=== PATIENT | female | born 1985 | race African-American/Black ===

== ENCOUNTER 2017-02-20 23:37 | Emergency (ER) | payer OTHER ==
[~2017-02-20] VITALS: Ht 160 cm; Wt 48.0 kg
[~2017-02-20 23:37] MED LIST: ALBU18HF2; FERR-43 PO; PREN-88 PO
[2017-02-21] MEDS ORDERED: IPRATROPIUM BROMIDE (0.02%) 0.5MG/2.5ML NEB HHN STA (00:05)
[2017-02-21] MEDS ORDERED: ALBUTEROL (0.083%) 2.5MG/3ML NEB HHN STA (00:05)
[2017-02-21] MEDS ORDERED: METHYLPREDNISOLONE SOD SUCC 125 MG/2 ML VIAL IV STA (00:05)
[2017-02-21 00:48] LABS: EOSINOPHILS % 10.9 % (0.0-5.0); HEMATOCRIT. 39.3 % (36.0-48.0); LYMPHOCYTES % 38.9 % (20.0-50.0); MEAN CORPUSCULAR HEMOGLOBIN 28.5 pg (28.0-32.0); MEAN CORPUSCULAR HGB CONC 33.2 g/dL (31.0-37.0); MEAN CORPUSCULAR VOLUME 85.9 fL (81.0-99.0); MEAN PLATELET VOLUME 9.6 fl (7.4-10.4); MONOCYTES % 8.5 % (2.0-8.0); NEUTROPHILS % 40.7 % (40.0-76.0); PLATELET 268 x1000/uL (130-400); RED BLOOD CELL COUNT 4.57 mill/uL (4.2-5.4); WHITE BLOOD COUNT 7.5 x1000/uL (4.5-11.0)
[2017-02-21 00:53] LABS: CHLORIDE 105 mEq/L (98-107); INDEX HEMOLYSI 1 (1-3); INDEX ICTERIC 1 (1-4); INDEX LIPEMIC 1 (1-3)
[2017-02-21 00:55] LABS: PARTIAL THROMBOPLASTIN TIME 28.6 sec (24.0-34.0); PROTHROMBIN TIME 10.8 sec
[2017-02-21 00:56] LABS: HCG SCREEN NEGATIVE
[2017-02-21 01:00] LABS: ANION GAP 9; CALCIUM 9.2 mg/dL (8.5-10.1); CARBON DIOXIDE 29 mEq/L (21-32); UREA NITROGEN BLOOD 16 mg/dL (7-21); eGFR > 60 mL/min (>60)
[2017-02-21 03:43] VITALS: BP 107/80
== END 2017-02-21 03:49 | disposition home or self-care (01) ==
LOC: ER 23:38
DX: J45.41 Moderate persistent asthma with (acute) exacerbation (principal); Z91.010 Allergy to peanuts; Z91.013 Allergy to seafood; Z79.51 Long term (current) use of inhaled steroids; R03.0 Elevated blood-pressure reading, without diagnosis of hypertension; Z91.09 Other allergy status, other than to drugs and biological substances
CPT/HCPCS: 36415; 71010; 80048; 84703; 85025; 85610; 85730; 93005; 94644; 96374; 99285; J2930; J7611; Z7610

== ENCOUNTER 2017-03-23 07:14 | Emergency (ER) | payer OTHER ==
[~2017-03-23] VITALS: Ht 160 cm; Wt 50.0 kg
[2017-03-23] MEDS ORDERED: ONDANSETRON HCL 4MG/2ML VIAL IV STA ×2 (11:30→14:21)
[2017-03-23] MEDS ORDERED: MORPHINE SULFATE 4 MG/ML CPJ (NOT FOR IM USE) IV STA ×2 (11:30→14:21)
[2017-03-23 12:13] LABS: BASOPHILS % 1.1 % (0.0-2.0); EOSINOPHILS % 12.4 % (0.0-5.0); HEMATOCRIT. 36.7 % (36.0-48.0); HEMOGLOBIN. 12.2 g/dL (12.0-16.0); LYMPHOCYTES % 38.4 % (20.0-50.0); MEAN CORPUSCULAR HEMOGLOBIN 28.6 pg (28.0-32.0); MEAN CORPUSCULAR VOLUME 86.1 fL (81.0-99.0); MEAN PLATELET VOLUME 9.6 fl (7.4-10.4); MONOCYTES % 8.2 % (2.0-8.0); NEUTROPHILS % 39.9 % (40.0-76.0); PLATELET 258 x1000/uL (130-400); RED BLOOD CELL COUNT 4.27 mill/uL (4.2-5.4)
[2017-03-23 12:15] LABS: CHLORIDE 106 mEq/L (98-107)
[2017-03-23 12:16] LABS: PROTHROMBIN TIME 10.8 sec
[2017-03-23 12:20] LABS: CARBON DIOXIDE 27 mEq/L (21-32)
[2017-03-23 12:35] LABS: CLARITY URINE CLOUDY (CLEAR); COLOR URINE YELLOW (YELLOW); GLUCOSE URINE NEGATIVE (NEGATIVE); KETONES URINE NEGATIVE (NEGATIVE); LEUKOCYTE ESTERASE URINE 2+ (NEGATIVE); NITRITE URINE NEGATIVE (NEGATIVE); OCCULT BLOOD URINE NEGATIVE (NEGATIVE); PROTEIN URINE NEGATIVE (NEGATIVE); SPECIFIC GRAVITY URINE 1.017 (1.005-1.030)
[2017-03-23] MEDS ORDERED: SODIUM CHLORIDE 0.9% 1,000 ML IV ONE (14:21)
[2017-03-23] MEDS ORDERED: SODIUM CHLORIDE 0.9% 10ML VIAL ONE (14:30)
[2017-03-23] MEDS ORDERED: IOHEXOL-300 100 ML BOTTLE ONE (14:30)
[2017-03-23 14:31] VITALS: BP 110/70
== END 2017-03-23 16:36 | disposition home or self-care (01) ==
LOC: ER 11:03
DX: R10.32 Left lower quadrant pain (principal); M54.9 Dorsalgia, unspecified; J45.909 Unspecified asthma, uncomplicated; Z88.6 Allergy status to analgesic agent; Z88.8 Allergy status to other drugs, medicaments and biological substances
CPT/HCPCS: 36415; 74177; 80053; 81001; 81025; 83690; 85025; 85610; 96361; 96374; 96375; 96376; 99285; A4216; J2270; J2405; Q9967; J7030

== ENCOUNTER 2017-04-20 00:40 | Emergency (ER) | payer OTHER ==
[~2017-04-20] VITALS: Ht 160 cm; Wt 50.0 kg
[2017-04-20] MEDS ORDERED: ONDANSETRON 4MG ODT PO STA (02:49)
[2017-04-20] MEDS ORDERED: ACETAMINOPHEN 325MG TABLET PO STA (02:49)
[2017-04-20 03:14] LABS: BASOPHILS % 0.5 % (0.0-2.0); EOSINOPHILS % 9.4 % (0.0-5.0); HEMATOCRIT. 34.2 % (36.0-48.0); HEMOGLOBIN. 11.3 g/dL (12.0-16.0); LYMPHOCYTES % 31.8 % (20.0-50.0); MEAN CORPUSCULAR HEMOGLOBIN 28.6 pg (28.0-32.0); MEAN CORPUSCULAR VOLUME 86.6 fL (81.0-99.0); MONOCYTES % 9.2 % (2.0-8.0); NEUTROPHILS % 49.1 % (40.0-76.0); PLATELET 221 x1000/uL (130-400); RED BLOOD CELL COUNT 3.95 mill/uL (4.2-5.4); RED CELL DISTRIBUTION WIDTH 13.2 % (11.6-14.6)
[2017-04-20 03:17] LABS: PROTHROMBIN TIME 10.9 sec
[2017-04-20 03:20] LABS: CLARITY URINE CLEAR (CLEAR); COLOR URINE YELLOW (YELLOW); GLUCOSE URINE NEGATIVE (NEGATIVE); KETONES URINE NEGATIVE (NEGATIVE); LEUKOCYTE ESTERASE URINE 1+ (NEGATIVE); NITRITE URINE NEGATIVE (NEGATIVE); OCCULT BLOOD URINE NEGATIVE (NEGATIVE); PH URINE 5.5 (4.5-8.0); PROTEIN URINE NEGATIVE (NEGATIVE); SPECIFIC GRAVITY URINE 1.026 (1.005-1.030); UROBILINOGEN URINE 0.2 E.U./dL (0.2-1.0)
[2017-04-20 03:20] LABS: CARBON DIOXIDE 28 mEq/L (21-32); CHLORIDE 107 mEq/L (98-107)
[2017-04-20 03:38] LABS: *AMPHETAMINES SCREEN URINE NEGATIVE (NEGATIVE); *BARBITURATES SCREEN URINE NEGATIVE (NEGATIVE); *BENZODIAZEPINES SCREEN URINE NEGATIVE (NEGATIVE); *COCAINE SCREEN URINE NEGATIVE (NEGATIVE); CANNABINOID URINE SCREEN NEGATIVE (NEGATIVE); METHADONE URINE SCREEN NEGATIVE (NEGATIVE); OPIATES URINE SCREEN NEGATIVE (NEGATIVE); PHENCYCLIDINE URINE SCREEN NEGATIVE (NEGATIVE)
[2017-04-20] MEDS ORDERED: TRAMADOL 50MG TABLET PO ONE (05:00)
[2017-04-20 05:37] VITALS: BP 108/68
[2017-04-20] MEDS ORDERED: CEFTRIAXONE SODIUM 1 G/VIAL IM ONE (05:45)
[2017-04-20] MEDS ORDERED: LIDOCAINE HCL 1% 20ML VIAL (Pyxis) INJ MC ONE (05:45)
== END 2017-04-20 06:29 | disposition home or self-care (01) ==
LOC: ER 00:40
DX: N39.0 Urinary tract infection, site not specified (principal); R10.2 Pelvic and perineal pain; Z88.6 Allergy status to analgesic agent
CPT/HCPCS: 36415; 76830; 76856; 80053; 80305; 81001; 81025; 83690; 85025; 85610; 96372; 99285; J0696; J3490; Q0162; Z7610

== ENCOUNTER 2017-04-24 18:32 | Emergency (ER) | payer OTHER ==
[~2017-04-24] VITALS: Ht 160 cm; Wt 50.0 kg
[2017-04-25 01:15] VITALS: BP 102/68
[2017-04-25 01:42] LABS: CLARITY URINE CLOUDY (CLEAR); COLOR URINE DARK YELLOW (YELLOW); KETONES URINE NEGATIVE (NEGATIVE); LEUKOCYTE ESTERASE URINE TRACE (NEGATIVE); NITRITE URINE NEGATIVE (NEGATIVE); OCCULT BLOOD URINE NEGATIVE (NEGATIVE); PROTEIN URINE NEGATIVE (NEGATIVE); SPECIFIC GRAVITY URINE 1.024 (1.005-1.030); UROBILINOGEN URINE 0.2 E.U./dL (0.2-1.0)
[2017-04-25] MEDS ORDERED: PHENAZOPYRIDINE HCL 200MG TABLET PO ONE (02:00)
== END 2017-04-25 02:41 | disposition home or self-care (01) ==
LOC: ER 18:32
DX: N39.0 Urinary tract infection, site not specified (principal); J45.909 Unspecified asthma, uncomplicated; Z88.6 Allergy status to analgesic agent; Z91.010 Allergy to peanuts; Z91.013 Allergy to seafood; Z91.048 Other nonmedicinal substance allergy status; Z98.890 Other specified postprocedural states
CPT/HCPCS: 81001; 81025; 99283

== ENCOUNTER 2017-06-12 11:21 | Emergency (ER) | payer OTHER ==
[~2017-06-12] VITALS: Ht 157.5 cm; Wt 50.0 kg
[2017-06-12] MEDS ORDERED: IOHEXOL-300 100 ML BOTTLE ONE (11:22)
[2017-06-12] MEDS ORDERED: SODIUM CHLORIDE 0.9% 10ML VIAL ONE (11:22)
[2017-06-12] MEDS ORDERED: KETOROLAC 30MG/ML VIAL IV STA (15:00)
[2017-06-12] MEDS ORDERED: SODIUM CHLORIDE 0.9% 1,000 ML IV ONE ×2 (15:00→17:19)
[2017-06-12] MEDS ORDERED: DEXAMETHASONE 10 MG/ML VIAL IV ONE (15:00)
[2017-06-12 17:25] LABS: BASOPHILS % 0.5 % (0.0-2.0); EOSINOPHILS % 1.2 % (0.0-5.0); HEMATOCRIT. 32.9 % (36.0-48.0); HEMOGLOBIN. 10.9 g/dL (12.0-16.0); LYMPHOCYTES % 9.1 % (20.0-50.0); MEAN CORPUSCULAR HEMOGLOBIN 28.9 pg (28.0-32.0); MEAN CORPUSCULAR VOLUME 87.3 fL (81.0-99.0); MEAN PLATELET VOLUME 8.9 fl (7.4-10.4); MONOCYTES % 2.1 % (2.0-8.0); NEUTROPHILS % 87.1 % (40.0-76.0); PLATELET 235 x1000/uL (130-400); RED BLOOD CELL COUNT 3.77 mill/uL (4.2-5.4); RED CELL DISTRIBUTION WIDTH 13.1 % (11.6-14.6)
[2017-06-12 17:33] LABS: CARBON DIOXIDE 24 mEq/L (21-32); CHLORIDE 110 mEq/L (98-107)
[2017-06-12] MEDS ORDERED: PENICILLIN G BENZATHINE 1,200,000 UNITS/2ML SYR IM ONE (19:30)
[2017-06-12] MEDS ORDERED: HYDROCODONE/ACETAMINOPHEN 5/325MG TABLET PO ONE (19:30)
[2017-06-12 21:00] VITALS: BP 120/71
== END 2017-06-12 21:50 | disposition home or self-care (01) ==
LOC: ER 15:24
DX: J02.9 Acute pharyngitis, unspecified (principal); J45.909 Unspecified asthma, uncomplicated; Z88.6 Allergy status to analgesic agent
CPT/HCPCS: 36415; 70491; 80053; 81025; 85025; 96361; 96372; 96374; 96375; 99285; A4216; J0561; J1100; J1885; J7030; Q9967; Z7610

== ENCOUNTER 2017-07-09 11:27 | Emergency (ER) | payer OTHER ==
[~2017-07-09] VITALS: Ht 157.5 cm; Wt 53.0 kg
[2017-07-09] MEDS ORDERED: ONDANSETRON HCL 4MG/2ML VIAL IV STA (13:05)
[2017-07-09] MEDS ORDERED: FAMOTIDINE 20MG/2ML VIAL IV STA (13:05)
[2017-07-09] MEDS ORDERED: MAGNESIUM/ALUMINUM HYDROXIDE/SIMETHICONE 30ML UDC PO STA (13:05)
[2017-07-09] MEDS ORDERED: MORPHINE SULFATE 4 MG/ML CPJ (NOT FOR IM USE) IV STA (13:05)
[2017-07-09] MEDS ORDERED: SODIUM CHLORIDE 0.9% 1,000 ML IV ONE (13:05)
[2017-07-09 14:34] LABS: GLUCOSE URINE NEGATIVE (NEGATIVE); KETONES URINE NEGATIVE (NEGATIVE); LEUKOCYTE ESTERASE URINE 1+ (NEGATIVE); NITRITE URINE NEGATIVE (NEGATIVE); OCCULT BLOOD URINE 3+ (NEGATIVE); PH URINE 5.5 (4.5-8.0); PROTEIN URINE NEGATIVE (NEGATIVE); SPECIFIC GRAVITY URINE 1.029 (1.005-1.030); UROBILINOGEN URINE 0.2 E.U./dL (0.2-1.0)
[2017-07-09 14:35] LABS: CLARITY URINE CLEAR (CLEAR); COLOR URINE YELLOW (YELLOW)
[2017-07-09 14:56] LABS: EOSINOPHILS % 14.2 % (0.0-5.0); HEMATOCRIT. 33.6 % (36.0-48.0); LYMPHOCYTES % 34.2 % (20.0-50.0); MEAN CORPUSCULAR HEMOGLOBIN 28.8 pg (28.0-32.0); MEAN CORPUSCULAR VOLUME 87.8 fL (81.0-99.0); MEAN PLATELET VOLUME 9.5 fl (7.4-10.4); MONOCYTES % 7.9 % (2.0-8.0); NEUTROPHILS % 42.7 % (40.0-76.0); PLATELET 239 x1000/uL (130-400); RED BLOOD CELL COUNT 3.83 mill/uL (4.2-5.4)
[2017-07-09 14:58] LABS: *AMPHETAMINES SCREEN URINE NEGATIVE (NEGATIVE); *BARBITURATES SCREEN URINE NEGATIVE (NEGATIVE); *BENZODIAZEPINES SCREEN URINE NEGATIVE (NEGATIVE); *COCAINE SCREEN URINE NEGATIVE (NEGATIVE); CANNABINOID URINE SCREEN NEGATIVE (NEGATIVE); METHADONE URINE SCREEN NEGATIVE (NEGATIVE); PHENCYCLIDINE URINE SCREEN NEGATIVE (NEGATIVE)
[2017-07-09 15:01] LABS: HCG SCREEN NEGATIVE
[2017-07-09 15:03] LABS: OPIATES URINE SCREEN PRESUMTIVE POSITIVE (NEGATIVE)
[2017-07-09 15:05] LABS: D-DIMER < 0.19 mg/L FEU (<0.50); INR 1.1
[2017-07-09 15:08] LABS: CARBON DIOXIDE 26 mEq/L (21-32); CHLORIDE 112 mEq/L (98-107); ETHANOL BLOOD < 10 mg/dL
[2017-07-09 15:10] LABS: TROPONIN I < 0.02 ng/mL (0.00-0.04)
[2017-07-09] MEDS ORDERED: MORPHINE SULFATE 4 MG/ML CPJ (NOT FOR IM USE) IV ONE (15:30)
[2017-07-09] MEDS ORDERED: LORAZEPAM 2MG/ML CPJ IV ONE (15:30)
[2017-07-09] MEDS ORDERED: ONDANSETRON HCL 4MG/2ML VIAL IV ONE (15:30)
[2017-07-09 17:32] VITALS: BP 142/86
== END 2017-07-09 18:23 | disposition home or self-care (01) ==
LOC: ER 12:45
DX: K29.70 Gastritis, unspecified, without bleeding (principal); N39.0 Urinary tract infection, site not specified; R07.9 Chest pain, unspecified; J45.909 Unspecified asthma, uncomplicated; Z88.6 Allergy status to analgesic agent
CPT/HCPCS: 36415; 71010; 80053; 80305; 81001; 83690; 83880; 84484; 84703; 85025; 85379; 85610; 93005; 96361; 96374; 96375; 96376; 99285; G0482; J2060; J2270; J2405; J3490; J7030; Z7610

== ENCOUNTER 2017-07-11 10:01 | Emergency (ER) | payer OTHER ==
[~2017-07-11] VITALS: Ht 157.5 cm; Wt 53.0 kg
[2017-07-11] MEDS ORDERED: NITR100C PO (10:46)
[2017-07-11] MEDS ORDERED: FAMO20TA8 PO (10:46)
[2017-07-11] MEDS ORDERED: HYDR-3281 PO (10:46)
[2017-07-11] MEDS ORDERED: CARI350T27 PO (10:46)
[2017-07-11] MEDS ORDERED: VISCOUS LIDOCAINE 2% 15 ML UDC PO STA (15:21)
[2017-07-11] MEDS ORDERED: SODIUM CHLORIDE 0.9% 1,000 ML IV ONE (15:21)
[2017-07-11] MEDS ORDERED: MAGNESIUM/ALUMINUM HYDROXIDE/SIMETHICONE 30ML UDC PO STA (15:21)
[2017-07-11] MEDS ORDERED: MORPHINE SULFATE 4 MG/ML CPJ (NOT FOR IM USE) IV ONE (15:30)
[2017-07-11 16:18] LABS: HEMATOCRIT. 39.2 % (36.0-48.0); LYMPHOCYTES % 24.4 % (20.0-50.0); MEAN CORPUSCULAR VOLUME 87.3 fL (81.0-99.0); MEAN PLATELET VOLUME 9.5 fl (7.4-10.4); MONOCYTES % 6.5 % (2.0-8.0); NEUTROPHILS % 67.1 % (40.0-76.0); PLATELET 289 x1000/uL (130-400); RED BLOOD CELL COUNT 4.49 mill/uL (4.2-5.4)
[2017-07-11 16:26] LABS: CARBON DIOXIDE 26 mEq/L (21-32); CHLORIDE 105 mEq/L (98-107)
[2017-07-11] MEDS ORDERED: LORAZEPAM 0.5MG TABLET PO ONE (17:30)
[2017-07-11 19:15] VITALS: BP 114/68
[2017-07-11] MEDS ORDERED: TRAMADOL 50MG TABLET PO ONE (19:15)
== END 2017-07-11 19:25 | disposition home or self-care (01) ==
LOC: ER 14:15
DX: R10.13 Epigastric pain (principal); R07.89 Other chest pain; J45.909 Unspecified asthma, uncomplicated; Z88.6 Allergy status to analgesic agent; Z87.11 Personal history of peptic ulcer disease
CPT/HCPCS: 36415; 71010; 80053; 81025; 84484; 85025; 93005; 96374; 99285; J2270; J7030; Z7610

== ENCOUNTER 2017-08-25 08:36 | Emergency (ER) | payer OTHER ==
[~2017-08-25] VITALS: Ht 160 cm; Wt 52.0 kg
[~2017-08-25 08:36] MED LIST changes: +CARI350T27 PO; +FAMO20TA8 PO; +HYDR-3281 PO; +NITR100C PO
[2017-08-25] MEDS ORDERED: NO HOME MEDICATIONS (08:48)
[2017-08-25 09:41] LABS: CLARITY URINE CLOUDY (CLEAR); COLOR URINE YELLOW (YELLOW); GLUCOSE URINE NEGATIVE (NEGATIVE); KETONES URINE NEGATIVE (NEGATIVE); LEUKOCYTE ESTERASE URINE 2+ (NEGATIVE); NITRITE URINE NEGATIVE (NEGATIVE); OCCULT BLOOD URINE NEGATIVE (NEGATIVE); PROTEIN URINE NEGATIVE (NEGATIVE); SPECIFIC GRAVITY URINE 1.024 (1.005-1.030)
[2017-08-25] MEDS ORDERED: MORPHINE SULFATE 4 MG/ML CPJ (NOT FOR IM USE) IV STA (09:54)
[2017-08-25] MEDS ORDERED: ONDANSETRON HCL 4MG/2ML VIAL IV STA (09:54)
[2017-08-25] MEDS ORDERED: SODIUM CHLORIDE 0.9% 1,000 ML IV ONE (09:54)
[2017-08-25 10:15] LABS: BASOPHILS % 0.7 % (0.0-2.0); EOSINOPHILS % 6.4 % (0.0-5.0); HEMATOCRIT. 36.2 % (36.0-48.0); HEMOGLOBIN. 12.3 g/dL (12.0-16.0); LYMPHOCYTES % 30.7 % (20.0-50.0); MEAN CORPUSCULAR HEMOGLOBIN 29.2 pg (28.0-32.0); MEAN PLATELET VOLUME 8.9 fl (7.4-10.4); MONOCYTES % 12.7 % (2.0-8.0); NEUTROPHILS % 49.5 % (40.0-76.0); PLATELET 267 x1000/uL (130-400); RED BLOOD CELL COUNT 4.21 mill/uL (4.2-5.4); RED CELL DISTRIBUTION WIDTH 12.9 % (11.6-14.6)
[2017-08-25 10:22] LABS: CHLORIDE 105 mEq/L (98-107)
[2017-08-25 10:23] LABS: INR 1.1; PROTHROMBIN TIME 11.3 sec (9.4-11.6)
[2017-08-25 10:24] LABS: HCG SCREEN NEGATIVE
[2017-08-25 10:32] LABS: CARBON DIOXIDE 27 mEq/L (21-32)
[2017-08-25] MEDS ORDERED: CEFTRIAXONE 1 G PREMIX 50 ML IV ONE (11:30)
[2017-08-25] MEDS ORDERED: KETOROLAC 30MG/ML VIAL IM ONE (12:30)
[2017-08-25] MEDS ORDERED: MORPHINE SULFATE 4 MG/ML CPJ (NOT FOR IM USE) IV ONE (13:45)
[2017-08-25 15:42] VITALS: BP 117/71
== END 2017-08-25 15:42 | disposition home or self-care (01) ==
LOC: ER 09:07
DX: N39.0 Urinary tract infection, site not specified (principal); J32.9 Chronic sinusitis, unspecified; J45.909 Unspecified asthma, uncomplicated; Z88.8 Allergy status to other drugs, medicaments and biological substances
CPT/HCPCS: 36415; 74176; 76857; 80053; 81001; 83690; 84703; 85025; 85610; 96361; 96365; 96375; 96376; 99285; J0696; J2270; J2405; J7030; Z7610; J1885

== ENCOUNTER 2017-10-12 10:34 | Emergency (ER) | payer MEDICAID, OTHER ==
[~2017-10-12] VITALS: Ht 160 cm; Wt 53.0 kg
[~2017-10-12 10:34] MED LIST changes: +NO HOME MEDICATIONS
[2017-10-12] MEDS ORDERED: HALOPERIDOL LACTATE 5MG/ML VIAL IM ONE (15:30)
[2017-10-12] MEDS ORDERED: LORAZEPAM 2MG/ML CPJ IM ONE (15:30)
[2017-10-12] MEDS: MORPHINE SULFATE 4 MG/ML CPJ (NOT FOR IM USE) IV STA (16:42)
[2017-10-12] MEDS: SODIUM CHLORIDE 0.9% 1,000 ML IV ONE (16:42)
[2017-10-12] MEDS: ONDANSETRON HCL 4MG/2ML VIAL IV STA (16:43)
[2017-10-12] MEDS: FAMOTIDINE 20MG/2ML VIAL IV STA (16:43)
[2017-10-12 16:47] LABS: BASOPHILS % 0.3 % (0.0-2.0); EOSINOPHILS % 5.2 % (0.0-5.0); HEMATOCRIT. 38.7 % (36.0-48.0); HEMOGLOBIN. 12.7 g/dL (12.0-16.0); LYMPHOCYTES % 10.5 % (20.0-50.0); MEAN CORPUSCULAR HEMOGLOBIN 28.3 pg (28.0-32.0); MEAN CORPUSCULAR VOLUME 86.4 fL (81.0-99.0); MEAN PLATELET VOLUME 9.4 fl (7.4-10.4); MONOCYTES % 5.4 % (2.0-8.0); NEUTROPHILS % 78.6 % (40.0-76.0); PLATELET 230 x1000/uL (130-400); RED BLOOD CELL COUNT 4.47 mill/uL (4.2-5.4); RED CELL DISTRIBUTION WIDTH 13.2 % (11.6-14.6)
[2017-10-12 16:51] LABS: CHLORIDE 106 mEq/L (98-107)
[2017-10-12 16:53] LABS: INR 1.1
[2017-10-12 16:54] LABS: CLARITY URINE CLOUDY (CLEAR); COLOR URINE YELLOW (YELLOW); KETONES URINE 1+ (NEGATIVE); LEUKOCYTE ESTERASE URINE TRACE (NEGATIVE); NITRITE URINE NEGATIVE (NEGATIVE); OCCULT BLOOD URINE NEGATIVE (NEGATIVE); PROTEIN URINE NEGATIVE (NEGATIVE); SPECIFIC GRAVITY URINE 1.035 (1.005-1.030)
[2017-10-12 16:59] LABS: CARBON DIOXIDE 25 mEq/L (21-32)
[2017-10-12 19:40] VITALS: BP 104/55
[2017-10-12] MEDS ORDERED: HYDROCODONE/APAP 7.5/325MG 1 TAB TABLET PO ONE (19:45)
== END 2017-10-12 20:20 | disposition home or self-care (01) ==
LOC: ER 10:34
DX: K52.9 Noninfective gastroenteritis and colitis, unspecified (principal); J45.909 Unspecified asthma, uncomplicated; Z88.6 Allergy status to analgesic agent
CPT/HCPCS: 36415; 80053; 81001; 81025; 83690; 85025; 85610; 96374; 96375; 99284; J2270; J2405; J3490; J7030

== ENCOUNTER 2017-11-10 16:36 | Emergency (ER) | payer MEDICAID ==
[~2017-11-10] VITALS: Ht 160 cm; Wt 62.0 kg
[2017-11-10] MEDS ORDERED: IPRATROPIUM/ALBUTEROL 0.5-3(2.5)MG/3ML NEB HHN ONE (17:30)
[2017-11-10] MEDS ORDERED: PREDNISONE 20MG TABLET PO ONE (17:30)
[2017-11-10] MEDS ORDERED: ALBUTEROL (0.083%) 2.5MG/3ML NEB HHN STA (18:12)
[2017-11-10 18:46] VITALS: BP 113/69
[2017-11-10] MEDS ORDERED: ACETAMINOPHEN 325MG TABLET PO ONE (19:15)
== END 2017-11-10 19:23 | disposition home or self-care (01) ==
LOC: ER 16:57
DX: J45.901 Unspecified asthma with (acute) exacerbation (principal); M79.1 Myalgia; J02.9 Acute pharyngitis, unspecified; Z88.6 Allergy status to analgesic agent
CPT/HCPCS: 71045; 87804; 93005; 94640; 99285; J7512; J7611; J7620

== ENCOUNTER 2017-12-11 19:45 | Emergency (ER) | payer MEDICAID ==
[~2017-12-11] VITALS: Ht 160 cm; Wt 55.0 kg
[2017-12-11] MEDS ORDERED: VISCOUS LIDOCAINE 2% 15 ML UDC MM STA (22:39)
[2017-12-11] MEDS ORDERED: FAMOTIDINE 20MG TABLET PO ONE (22:45)
[2017-12-12 00:15] VITALS: BP 129/47
== END 2017-12-12 02:09 | disposition home or self-care (01) ==
LOC: ER 20:51
DX: R07.89 Other chest pain (principal); R07.0 Pain in throat; J45.909 Unspecified asthma, uncomplicated; Z98.890 Other specified postprocedural states; Z79.82 Long term (current) use of aspirin
CPT/HCPCS: 71045; 81025; 93005; 99284; Z7610

== ENCOUNTER 2018-02-04 18:44 | Emergency (ER) | payer MEDICAID ==
[~2018-02-04] VITALS: Ht 160 cm; Wt 53.0 kg
[2018-02-04 22:15] VITALS: BP 119/74
== END 2018-02-04 22:50 | disposition home or self-care (01) ==
LOC: ER 19:25
DX: M25.511 Pain in right shoulder (principal); J45.909 Unspecified asthma, uncomplicated
CPT/HCPCS: 81025; 99283; A4565

== ENCOUNTER 2019-01-30 13:31 | Emergency (ER) | payer MEDICAID ==
[~2019-01-30] VITALS: Ht 160 cm; Wt 58.0 kg
[2019-01-30] MEDS ORDERED: ONDANSETRON HCL 4MG/2ML INJ IV STA (15:02)
[2019-01-30] MEDS ORDERED: MORPHINE SULFATE 4 MG/ML CPJ (NOT FOR IM USE) IV STA (15:02)
[2019-01-30] MEDS ORDERED: SODIUM CHLORIDE 0.9% 1,000 ML IV ONE (15:02)
[2019-01-30] MEDS ORDERED: LORAZEPAM 2MG/ML CPJ IV ONE ×2 (15:15→17:00)
[2019-01-30 15:49] LABS: CLARITY URINE CLOUDY (CLEAR); COLOR URINE YELLOW (YELLOW); KETONES URINE NEGATIVE (NEGATIVE); LEUKOCYTE ESTERASE URINE NEGATIVE (NEGATIVE); NITRITE URINE NEGATIVE (NEGATIVE); OCCULT BLOOD URINE NEGATIVE (NEGATIVE); PH URINE >=9.0 (4.5-8.0); PROTEIN URINE NEGATIVE (NEGATIVE); SPECIFIC GRAVITY URINE 1.023 (1.005-1.030)
[2019-01-30 16:05] LABS: BASOPHILS % 0.8 % (0.0-2.0); EOSINOPHILS % 8.3 % (0.0-5.0); HEMOGLOBIN. 12.5 g/dL (12.0-16.0); LYMPHOCYTES % 33.3 % (20.0-50.0); MEAN CORPUSCULAR HEMOGLOBIN 29.4 pg (28.0-32.0); MEAN CORPUSCULAR VOLUME 87.1 fL (81.0-99.0); MEAN PLATELET VOLUME 9.8 fl (7.4-10.4); MONOCYTES % 8.1 % (2.0-8.0); NEUTROPHILS % 49.5 % (40.0-76.0); PLATELET 293 x1000/uL (130-400); RED BLOOD CELL COUNT 4.24 mill/uL (4.2-5.4); RED CELL DISTRIBUTION WIDTH 12.7 % (11.6-14.6)
[2019-01-30 16:10] LABS: CHLORIDE 108 mEq/L (98-107)
[2019-01-30 16:14] LABS: PARTIAL THROMBOPLASTIN TIME 29.9 sec (23.4-31.0); PROTHROMBIN TIME 10.4 sec (9.6-11.0)
[2019-01-30 16:24] LABS: HCG SCREEN NEGATIVE
[2019-01-30] MEDS ORDERED: ONDANSETRON HCL 4MG/2ML INJ IV ONE (17:00)
[2019-01-30] MEDS ORDERED: MORPHINE SULFATE 4 MG/ML CPJ (NOT FOR IM USE) IV ONE (17:00)
[2019-01-30 20:45] VITALS: BP 124/72
== END 2019-01-30 21:15 | disposition home or self-care (01) ==
LOC: ER 13:31
DX: N39.0 Urinary tract infection, site not specified (principal); M54.16 Radiculopathy, lumbar region; J45.909 Unspecified asthma, uncomplicated; Z79.899 Other long term (current) drug therapy; Z88.6 Allergy status to analgesic agent; Z91.010 Allergy to peanuts; Z91.013 Allergy to seafood
CPT/HCPCS: 36415; 74176; 80053; 81003; 81025; 83880; 84484; 84703; 85025; 85610; 85730; 93970; 96374; 96375; 96376; 99284; J2060; J2270; J2405; J7030

== ENCOUNTER 2019-02-01 23:58 | Emergency (ER) | payer MEDICAID ==
[~2019-02-01] VITALS: Ht 160 cm; Wt 57.0 kg
[2019-02-02 01:00] VITALS: BP 122/80
[2019-02-02] MEDS ORDERED: VISCOUS LIDOCAINE 2% 15 ML UDC MM STA (01:05)
[2019-02-02] MEDS ORDERED: FAMOTIDINE 20MG TABLET PO ONE (01:15)
[2019-02-02] MEDS ORDERED: MAGNESIUM/ALUMINUM HYDROXIDE/SIMETHICONE 30ML UDC PO ONE (01:15)
== END 2019-02-02 01:32 | disposition home or self-care (01) ==
LOC: ER 23:58
DX: G89.29 Other chronic pain (principal); R10.9 Unspecified abdominal pain; J45.909 Unspecified asthma, uncomplicated; Z79.899 Other long term (current) drug therapy; Z88.6 Allergy status to analgesic agent; Z91.010 Allergy to peanuts; Z91.013 Allergy to seafood
CPT/HCPCS: 99283

== ENCOUNTER 2019-06-20 20:55 | Emergency (ER) | payer MEDICAID, OTHER ==
[~2019-06-20] VITALS: Ht 160 cm; Wt 58.0 kg
[2019-06-21] MEDS ORDERED: MORPHINE SULFATE 2 MG/ML CPJ (NOT FOR IM USE) IV ONE (02:30)
[2019-06-21 03:16] LABS: CHLORIDE 108 mEq/L (98-107)
[2019-06-21 03:22] LABS: BASOPHILS % 0.7 % (0.0-2.0); EOSINOPHILS % 6.4 % (0.0-5.0); HEMATOCRIT. 38.9 % (36.0-48.0); HEMOGLOBIN. 12.9 g/dL (12.0-16.0); LYMPHOCYTES % 43.9 % (20.0-50.0); MEAN CORPUSCULAR VOLUME 87.6 fL (81.0-99.0); MEAN PLATELET VOLUME 10.3 fl (7.4-10.4); MONOCYTES % 8.7 % (2.0-8.0); NEUTROPHILS % 40.3 % (40.0-76.0); PLATELET 264 x1000/uL (130-400); RED BLOOD CELL COUNT 4.44 mill/uL (4.2-5.4); RED CELL DISTRIBUTION WIDTH 12.5 % (11.6-14.6)
[2019-06-21 03:28] LABS: B-HCG QUANTITATIVE < 1 mIU/mL (<3)
[2019-06-21 03:30] LABS: CLARITY URINE CLEAR (CLEAR); COLOR URINE YELLOW (YELLOW); KETONES URINE TRACE (NEGATIVE); LEUKOCYTE ESTERASE URINE NEGATIVE (NEGATIVE); NITRITE URINE NEGATIVE (NEGATIVE); OCCULT BLOOD URINE 3+ (NEGATIVE); PH URINE 6.5 (4.5-8.0); PROTEIN URINE NEGATIVE (NEGATIVE); SPECIFIC GRAVITY URINE 1.026 (1.005-1.030)
[2019-06-21 05:52] VITALS: BP 119/75
[2019-06-21] MEDS ORDERED: KETOROLAC 30MG/ML VIAL IV ONE (06:15)
== END 2019-06-21 07:00 | disposition home or self-care (01) ==
LOC: ER 20:55
DX: D25.9 Leiomyoma of uterus, unspecified (principal)
CPT/HCPCS: 36415; 76830; 76856; 80053; 81003; 81025; 83690; 84702; 85025; 96374; 96375; 99284; J1885; J2270

== ENCOUNTER 2019-06-25 16:53 | Emergency (ER) | payer MEDICAID ==
[~2019-06-25] VITALS: Ht 167.6 cm; Wt 70.0 kg
[2019-06-25] MEDS ORDERED: KETOROLAC 60MG/2ML VIAL IM ONE (20:45)
[2019-06-25 21:36] LABS: CLARITY URINE CLEAR (CLEAR); COLOR URINE YELLOW (YELLOW); KETONES URINE NEGATIVE (NEGATIVE); LEUKOCYTE ESTERASE URINE NEGATIVE (NEGATIVE); NITRITE URINE NEGATIVE (NEGATIVE); OCCULT BLOOD URINE TRACE (NEGATIVE); PROTEIN URINE NEGATIVE (NEGATIVE); SPECIFIC GRAVITY URINE 1.025 (1.005-1.030)
[2019-06-26] MEDS ORDERED: HYDROCODONE/ACETAMINOPHEN 5/325MG TABLET PO NR (00:45)
[2019-06-26 02:00] VITALS: BP 124/68
== END 2019-06-26 02:31 | disposition home or self-care (01) ==
LOC: ER 16:53
DX: D21.9 Benign neoplasm of connective and other soft tissue, unspecified (principal); R10.2 Pelvic and perineal pain; R10.30 Lower abdominal pain, unspecified; J45.909 Unspecified asthma, uncomplicated; R11.0 Nausea; R30.0 Dysuria; Z91.010 Allergy to peanuts; Z91.013 Allergy to seafood; Z88.6 Allergy status to analgesic agent; Z79.899 Other long term (current) drug therapy
CPT/HCPCS: 81003; 81025; 96372; 99283; J1885; Z7610

== ENCOUNTER 2019-09-01 05:06 | Emergency (ER) | payer MEDICAID, OTHER ==
[~2019-09-01] VITALS: Ht 160 cm; Wt 57.0 kg
[2019-09-01 06:23] LABS: BASOPHILS % 0.9 % (0.0-2.0); EOSINOPHILS % 5.4 % (0.0-5.0); HEMATOCRIT. 32.6 % (36.0-48.0); HEMOGLOBIN. 10.8 g/dL (12.0-16.0); LYMPHOCYTES % 42.8 % (20.0-50.0); MEAN CORPUSCULAR HEMOGLOBIN 28.9 pg (28.0-32.0); MEAN CORPUSCULAR VOLUME 87.1 fL (81.0-99.0); MEAN PLATELET VOLUME 9.3 fl (7.4-10.4); NEUTROPHILS % 39.9 % (40.0-76.0); PLATELET 243 x1000/uL (130-400); RED BLOOD CELL COUNT 3.75 mill/uL (4.2-5.4); RED CELL DISTRIBUTION WIDTH 12.9 % (11.6-14.6)
[2019-09-01 06:27] LABS: INR 1.1; PROTHROMBIN TIME 11.1 sec (9.6-11.0)
[2019-09-01 06:29] LABS: CHLORIDE 110 mEq/L (98-107)
[2019-09-01] MEDS ORDERED: DIPHENHYDRAMINE 25MG CAPSULE PO ONE (06:30)
[2019-09-01 08:24] VITALS: BP 114/68
== END 2019-09-01 08:45 | disposition home or self-care (01) ==
LOC: ER 05:06
DX: S70.11XA Contusion of right thigh, initial encounter (principal); L03.115 Cellulitis of right lower limb; R03.0 Elevated blood-pressure reading, without diagnosis of hypertension; X58.XXXA Exposure to other specified factors, initial encounter; Y93.89 Activity, other specified; Y92.89 Other specified places as the place of occurrence of the external cause; Z88.6 Allergy status to analgesic agent; Z91.010 Allergy to peanuts; Z91.013 Allergy to seafood
CPT/HCPCS: 36415; 80053; 85025; 85610; 93971; 99284; Q0163; Z7610

== ENCOUNTER 2019-09-25 10:18 | Emergency (ER) | payer OTHER ==
[~2019-09-25] VITALS: Ht 165.1 cm; Wt 55.0 kg
[~2019-09-25 10:18] MED LIST changes: +IOHEXOL-350 100 ML BOTTLE ONE
[2019-09-25] MEDS ORDERED: METHYLPREDNISOLONE SOD SUCC 125 MG/2 ML VIAL IV STA (10:44)
[2019-09-25] MEDS ORDERED: ALBUTEROL (0.083%) 2.5MG/3ML NEB HHN STA (10:44)
[2019-09-25] MEDS ORDERED: IPRATROPIUM BROMIDE (0.02%) 0.5MG/2.5ML NEB HHN STA (10:44)
[2019-09-25] MEDS ORDERED: MAGNESIUM 2 G PREMIX 50 ML IV ONE (10:45)
[2019-09-25] MEDS ORDERED: LORAZEPAM 0.5MG TABLET PO ONE (10:45)
[2019-09-25 11:01] LABS: BASOPHILS % 0.6 % (0.0-2.0); EOSINOPHILS % 2.7 % (0.0-5.0); HEMATOCRIT. 35.9 % (36.0-48.0); LYMPHOCYTES % 35.5 % (20.0-50.0); MEAN CORPUSCULAR HEMOGLOBIN 29.3 pg (28.0-32.0); MEAN CORPUSCULAR VOLUME 87.4 fL (81.0-99.0); MEAN PLATELET VOLUME 9.3 fl (7.4-10.4); MONOCYTES % 7.9 % (2.0-8.0); NEUTROPHILS % 53.3 % (40.0-76.0); PLATELET 285 x1000/uL (130-400); RED BLOOD CELL COUNT 4.11 mill/uL (4.2-5.4); RED CELL DISTRIBUTION WIDTH 12.6 % (11.6-14.6)
[2019-09-25 11:07] LABS: CHLORIDE 106 mEq/L (98-107)
[2019-09-25 11:11] LABS: PROTHROMBIN TIME 10.4 sec (9.6-11.0)
[2019-09-25] MEDS ORDERED: MORPHINE SULFATE 4 MG/ML CPJ (NOT FOR IM USE) IV ONE (11:45)
[2019-09-25 15:30] LABS: CANNABINOID URINE SCREEN NEGATIVE (NEGATIVE); PHENCYCLIDINE URINE SCREEN NEGATIVE (NEGATIVE)
[2019-09-25 15:31] LABS: *AMPHETAMINES SCREEN URINE NEGATIVE (NEGATIVE); *BARBITURATES SCREEN URINE NEGATIVE (NEGATIVE); *BENZODIAZEPINES SCREEN URINE NEGATIVE (NEGATIVE); *COCAINE SCREEN URINE NEGATIVE (NEGATIVE); METHADONE URINE SCREEN NEGATIVE (NEGATIVE)
[2019-09-25 15:33] LABS: OPIATES URINE SCREEN PRESUMTIVE POSITIVE (NEGATIVE)
[2019-09-25 18:15] VITALS: BP 126/74
== END 2019-09-25 18:37 | disposition home or self-care (01) ==
LOC: ER 10:18
DX: R91.1 Solitary pulmonary nodule (principal); D18.09 Hemangioma of other sites; R00.0 Tachycardia, unspecified; R07.89 Other chest pain; J45.909 Unspecified asthma, uncomplicated; Z88.6 Allergy status to analgesic agent; Z91.010 Allergy to peanuts; Z91.013 Allergy to seafood; Z79.899 Other long term (current) drug therapy
CPT/HCPCS: 36415; 71045; 71275; 80053; 80305; 81025; 83880; 84484; 85025; 85610; 85730; 87804; 93005; 94644; 96365; 96375; 99285; J2270; J2930; J3475; J7611; Q9967; Z7610

== ENCOUNTER 2019-09-25 10:25 | Emergency (ER) | payer OTHER ==
[~2019-09-25 10:25] MED LIST changes: -IOHEXOL-350 100 ML BOTTLE ONE
== END 2019-09-25 10:50 | disposition left against medical advice (07) ==
LOC: ER 10:25
DX: R06.02 Shortness of breath (principal)

== ENCOUNTER 2020-04-16 14:15 | Emergency (ER) | payer OTHER ==
[~2020-04-16] VITALS: Ht 160 cm; Wt 60.0 kg
[2020-04-16] MEDS ORDERED: KETOROLAC 30MG/ML VIAL IV STA (14:42)
[2020-04-16] MEDS ORDERED: ONDANSETRON HCL 4MG/2ML INJ IV STA (14:42)
[2020-04-16] MEDS ORDERED: SODIUM CHLORIDE 0.9% 1,000 ML IV ONE (14:42)
[2020-04-16 15:24] LABS: BASOPHILS % 0.5 % (0.0-2.0); CHLORIDE 105 mEq/L (98-107); EOSINOPHILS % 1.8 % (0.0-5.0); HEMATOCRIT. 36.4 % (36.0-48.0); HEMOGLOBIN. 12.6 g/dL (12.0-16.0); LYMPHOCYTES % 18.9 % (20.0-50.0); MEAN CORPUSCULAR HEMOGLOBIN 30.2 pg (28.0-32.0); MEAN CORPUSCULAR VOLUME 87.3 fL (81.0-99.0); MONOCYTES % 7.1 % (2.0-8.0); NEUTROPHILS % 71.7 % (40.0-76.0); PLATELET 274 x1000/uL (130-400); RED BLOOD CELL COUNT 4.17 mill/uL (4.2-5.4); RED CELL DISTRIBUTION WIDTH 12.9 % (11.6-14.6)
[2020-04-16] MEDS ORDERED: HYDROCODONE/ACETAMINOPHEN 5/325MG TABLET PO ONE (18:45)
[2020-04-16 19:01] LABS: CLARITY URINE CLOUDY (CLEAR); COLOR URINE DARK YELLOW (YELLOW); KETONES URINE 3+ (NEGATIVE); LEUKOCYTE ESTERASE URINE TRACE (NEGATIVE); NITRITE URINE NEGATIVE (NEGATIVE); OCCULT BLOOD URINE NEGATIVE (NEGATIVE); PH URINE 5.5 (4.5-8.0); PROTEIN URINE 1+ (NEGATIVE); SPECIFIC GRAVITY URINE 1.031 (1.005-1.030)
[2020-04-16 19:45] VITALS: BP 119/69
== END 2020-04-16 20:04 | disposition home or self-care (01) ==
LOC: ER 14:36
DX: D25.9 Leiomyoma of uterus, unspecified (principal); N30.90 Cystitis, unspecified without hematuria; R03.0 Elevated blood-pressure reading, without diagnosis of hypertension
CPT/HCPCS: 36415; 71045; 74176; 76830; 76856; 80053; 81003; 81025; 83690; 85025; 96374; 96375; 99285; J1885; J2405; J7030

== ENCOUNTER 2020-05-13 21:21 | Emergency (ER) | payer OTHER ==
[~2020-05-13] VITALS: Ht 160 cm; Wt 57.0 kg
[2020-05-13 21:23] VITALS: BP 141/57
== END 2020-05-13 23:26 | disposition home or self-care (01) ==
LOC: ER 21:21
DX: J01.90 Acute sinusitis, unspecified (principal); J45.909 Unspecified asthma, uncomplicated; F17.200 Nicotine dependence, unspecified, uncomplicated; Z98.890 Other specified postprocedural states; Z79.899 Other long term (current) drug therapy; Z88.6 Allergy status to analgesic agent; Z91.010 Allergy to peanuts; Z91.013 Allergy to seafood
CPT/HCPCS: 99283

== ENCOUNTER 2020-12-16 21:21 | Emergency (ER) | payer MEDICAID, OTHER ==
[~2020-12-16] VITALS: Ht 157.5 cm; Wt 54.0 kg
[~2020-12-16 21:21] MED LIST changes: -HYDR-3281 PO; +HYDR-4346 PO
[2020-12-16 22:47] LABS: CLARITY URINE CLOUDY (CLEAR); COLOR URINE YELLOW (YELLOW); KETONES URINE TRACE (NEGATIVE); LEUKOCYTE ESTERASE URINE 1+ (NEGATIVE); NITRITE URINE NEGATIVE (NEGATIVE); OCCULT BLOOD URINE NEGATIVE (NEGATIVE); PH URINE 6.5 (4.5-8.0); PROTEIN URINE TRACE (NEGATIVE); SPECIFIC GRAVITY URINE 1.038 (1.005-1.030)
[2020-12-17] MEDS ORDERED: CEFTRIAXONE 1 G PREMIX 50 ML IV ONE (00:15)
[2020-12-17] MEDS ORDERED: HYDROCODONE/ACETAMINOPHEN 5/325MG TABLET PO ONE (00:15)
[2020-12-17] MEDS ORDERED: SODIUM CHLORIDE 0.9% 1,000 ML IV ONE (00:15)
[2020-12-17 00:34] LABS: BASOPHILS % 0.7 % (0.0-2.0); EOSINOPHILS % 1.8 % (0.0-5.0); HEMOGLOBIN. 11.2 g/dL (12.0-16.0); LYMPHOCYTES % 40.9 % (20.0-50.0); MEAN CORPUSCULAR HEMOGLOBIN 29.8 pg (28.0-32.0); MEAN CORPUSCULAR VOLUME 87.8 fL (81.0-99.0); MEAN PLATELET VOLUME 9.6 fl (7.4-10.4); MONOCYTES % 9.2 % (2.0-8.0); NEUTROPHILS % 47.4 % (40.0-76.0); PLATELET 239 x1000/uL (130-400); RED BLOOD CELL COUNT 3.75 mill/uL (4.2-5.4); RED CELL DISTRIBUTION WIDTH 12.8 % (11.6-14.6)
[2020-12-17 00:47] LABS: CHLORIDE 107 mEq/L (98-107)
[2020-12-17 01:00] LABS: HCG SCREEN NEGATIVE
[2020-12-17] MEDS ORDERED: IBUP-2029 MT (02:28)
[2020-12-17] MEDS ORDERED: CEPH500C2 MT (02:28)
[2020-12-17 02:56] VITALS: BP 118/75
== END 2020-12-17 02:57 | disposition home or self-care (01) ==
LOC: ER 21:21
DX: N39.0 Urinary tract infection, site not specified (principal); D25.9 Leiomyoma of uterus, unspecified; R03.0 Elevated blood-pressure reading, without diagnosis of hypertension; Z87.440 Personal history of urinary (tract) infections
CPT/HCPCS: 36415; 76830; 76856; 80053; 81003; 81025; 83690; 84703; 85025; 93005; 96365; 96366; 99285; J0696; J7030

== ENCOUNTER 2021-02-22 09:53 | Emergency (ER) | payer OTHER ==
[~2021-02-22] VITALS: Ht 160 cm; Wt 60.0 kg
[~2021-02-22 09:53] MED LIST changes: +CEPH500C2 MT; +IBUP-2029 MT
[2021-02-22] MEDS ORDERED: ACET-2708 MT (10:43)
[2021-02-22] MEDS ORDERED: AMOX250S70 PO (10:43)
[2021-02-22] MEDS ORDERED: ACETAMINOPHEN WITH CODEINE 300/30MG TABLET PO ONE (10:45)
[2021-02-22 11:21] VITALS: BP 115/70
== END 2021-02-22 11:22 | disposition home or self-care (01) ==
LOC: ER 09:53
DX: J32.9 Chronic sinusitis, unspecified (principal); J45.909 Unspecified asthma, uncomplicated; Z79.899 Other long term (current) drug therapy; Z88.6 Allergy status to analgesic agent
CPT/HCPCS: 81025; 99283

== ENCOUNTER 2021-02-24 12:09 | Emergency (ER) | payer OTHER ==
[~2021-02-24] VITALS: Ht 160 cm; Wt 58.0 kg
[~2021-02-24 12:09] MED LIST changes: +ACET-2708 MT; +AMOX250S70 PO
[2021-02-24 15:24] LABS: CHLORIDE 111 mEq/L (98-107); HEMATOCRIT. 36.8 % (36.0-48.0); HEMOGLOBIN. 12.2 g/dL (12.0-16.0); MEAN CORPUSCULAR HEMOGLOBIN 30.1 pg (28.0-32.0); MEAN CORPUSCULAR VOLUME 90.5 fL (81.0-99.0); MEAN PLATELET VOLUME 9.9 fl (7.4-10.4); MONOCYTES % 9.1 % (2.0-8.0); NEUTROPHILS % 56.9 % (40.0-76.0); PLATELET 256 x1000/uL (130-400); RED BLOOD CELL COUNT 4.07 mill/uL (4.2-5.4); RED CELL DISTRIBUTION WIDTH 12.5 % (11.6-14.6)
[2021-02-24 15:27] LABS: HCG SCREEN NEGATIVE
[2021-02-24 16:24] LABS: PARTIAL THROMBOPLASTIN TIME 29.2 sec (23.4-31.0); PROTHROMBIN TIME 10.7 sec (9.6-11.0)
[2021-02-24] MEDS ORDERED: IBUP-2028 MT (18:38)
[2021-02-24] MEDS ORDERED: IBUPROFEN 600MG TABLET PO ONE (18:45)
[2021-02-24 20:52] VITALS: BP 119/68
== END 2021-02-24 20:54 | disposition home or self-care (01) ==
LOC: ER 12:09
DX: R07.89 Other chest pain (principal); R51.9 Headache, unspecified; J45.909 Unspecified asthma, uncomplicated; Z91.010 Allergy to peanuts; Z88.6 Allergy status to analgesic agent; Z91.013 Allergy to seafood; Z79.899 Other long term (current) drug therapy; Z98.890 Other specified postprocedural states
CPT/HCPCS: 36415; 71045; 80053; 82962; 84484; 84703; 85025; 93005; 99285

== ENCOUNTER 2023-05-01 08:42 | Emergency (ER) | payer OTHER ==
[~2023-05-01] VITALS: Ht 160 cm; Wt 69.0 kg
[~2023-05-01 08:42] MED LIST changes: +IBUP-2028 MT
[2023-05-01 08:44] VITALS: TEMP 97.9
[2023-05-01] MEDS ORDERED: IPRATROPIUM BROMIDE (0.02%) 0.5MG/2.5ML NEB HHN STA (09:16)
[2023-05-01] MEDS ORDERED: ALBUTEROL (0.083%) 2.5MG/3ML NEB HHN STA (09:16)
[2023-05-01 09:27] VITALS: PULSE 84; RESP 18; O2SAT 98
[2023-05-01] MEDS ORDERED: DEXAMETHASONE 4MG/ML 1ML VIAL IM SCH (09:30)
[2023-05-01] MEDS ORDERED: IPRATROPIUM/ALBUTEROL 0.5-3(2.5)MG/3ML NEB HHN ONE (10:15)
[2023-05-01] MEDS ORDERED: MED4 MT (10:33)
[2023-05-01] MEDS ORDERED: ALBU6.7H15 INH (10:33)
[2023-05-01 11:54] VITALS: PULSE 98; RESP 18; O2SAT 99
[2023-05-01] MEDS ORDERED: IPRATROPIUM/ALBUTEROL 0.5-3(2.5)MG/3ML NEB HHN NR (12:00)
[2023-05-01 12:17] VITALS: BP 130/59; PULSE 92; RESP 17
== END 2023-05-01 12:20 | disposition home or self-care (01) ==
LOC: ER 08:42
DX: J45.901 Unspecified asthma with (acute) exacerbation (principal); Z79.899 Other long term (current) drug therapy
CPT/HCPCS: 94640; 96372; 99284; J1100; Z7610 ×4

== ENCOUNTER → 2023-12-08 | Emergency (ER) | payer MEDICAID, OTHER ==
[~2023-12-08] MED LIST changes: +ALBU6.7H15 INH; +MED4 MT
== END | disposition left against medical advice (07) ==
LOC: ER 00:48
DX: J45.909 Unspecified asthma, uncomplicated (principal); Z53.21 Procedure and treatment not carried out due to patient leaving prior to being seen by health care provider

== ENCOUNTER 2025-01-06 13:40 | Emergency (ER) | payer MEDICAID ==
[~2025-01-06] VITALS: Ht 160 cm; Wt 65.8 kg
[~2025-01-06 13:40] MED LIST changes: -MED4 MT; +METH4TAB95 MT
[2025-01-06 13:43] VITALS: O2SAT 100
[2025-01-06 17:30] LABS: BASOPHILS % 0.4 % (0.0-2.0); DIFFERENTIAL COMMENT 0; HEMATOCRIT. 37.3 % (36.0-48.0); LYMPHOCYTES % 32.7 % (20.0-50.0); MEAN CORPUSCULAR HEMOGLOBIN 28.2 pg (28.0-32.0); MEAN CORPUSCULAR HGB CONC 32.3 g/dL (31.0-37.0); MEAN CORPUSCULAR VOLUME 87.3 fL (81.0-99.0); MEAN PLATELET VOLUME 9.4 fl (7.4-10.4); MONOCYTES % 8.6 % (2.0-8.0); NEUTROPHILS % 57.3 % (40.0-76.0); PLATELET 271 x1000/uL (130-400); RED BLOOD CELL COUNT 4.28 mill/uL (4.2-5.4); RED CELL DISTRIBUTION WIDTH 13.1 % (11.6-14.6); WHITE BLOOD COUNT 5.6 x1000/uL (4.5-11.0)
[2025-01-06 17:40] LABS: CHLORIDE 105 mEq/L (98-107); POTASSIUM 3.9 mEq/L (3.5-5.1); SODIUM 139 mEq/L (136-145)
[2025-01-06 17:41] LABS: CARBON DIOXIDE 26 mEq/L (21-32)
[2025-01-06 17:42] LABS: CALCIUM 9.5 mg/dL (8.7-10.4)
[2025-01-06 17:46] LABS: CREATININE 0.6 mg/dL (0.6-1.0); GLUCOSE 88 mg/dL (70-105)
[2025-01-06 17:47] LABS: UREA NITROGEN BLOOD 9 mg/dL (9-23)
[2025-01-06 17:48] LABS: ALANINE AMINOTRANSFERASE 18 IU/L (10-49); ALBUMIN 4.6 g/dL (3.2-4.8); ASPARTATE AMINOTRANSFERASE 18 IU/L (<34)
[2025-01-06 17:49] LABS: BILIRUBIN TOTAL 0.6 mg/dL (0.1-1.0); PROTEIN TOTAL 7.7 g/dL (6.0-8.3)
[2025-01-06] MEDS ORDERED: ACETAMINOPHEN WITH CODEINE 300/30MG TABLET PO ONE (19:00)
[2025-01-06 19:49] VITALS: TEMP 36.8
[2025-01-06] MEDS: ACETAMINOPHEN WITH CODEINE 300/30MG TABLET PO NR (19:49)
[2025-01-06] MEDS ORDERED: ACET-2708 MT (21:34)
[2025-01-06 21:48] LABS: CLARITY URINE CLOUDY (CLEAR); COLOR URINE YELLOW (YELLOW); GLUCOSE URINE NEGATIVE (NEGATIVE); KETONES URINE NEGATIVE (NEGATIVE); LEUKOCYTE ESTERASE URINE NEGATIVE (NEGATIVE); NITRITE URINE NEGATIVE (NEGATIVE); OCCULT BLOOD URINE NEGATIVE (NEGATIVE); PH URINE 5.5 (4.5-8.0); PROTEIN URINE NEGATIVE (NEGATIVE); SPECIFIC GRAVITY URINE 1.024 (1.005-1.030); UROBILINOGEN URINE 0.2 E.U./dL (0.2-1.0)
[2025-01-06 22:00] LABS: BACTERIA URINE NONE SEEN; RBC URINE NONE SEEN /hpf (0-2); SQUAMOUS EPITHELIAL CELL URINE 1+ /lpf (RARE/1+); WBC URINE 0-2 /hpf (0-2)
[2025-01-06 23:21] VITALS: BP 129/65; PULSE 86; RESP 18; O2SAT 98
== END 2025-01-06 23:22 | disposition still patient (30) ==
LOC: ER 13:40
DX: S90.01XA Contusion of right ankle, initial encounter (principal); N83.202 Unspecified ovarian cyst, left side; N83.201 Unspecified ovarian cyst, right side; J45.909 Unspecified asthma, uncomplicated; Z90.710 Acquired absence of both cervix and uterus; Z88.6 Allergy status to analgesic agent; Z91.010 Allergy to peanuts; Z91.018 Allergy to other foods; Z79.899 Other long term (current) drug therapy; W01.0XXA Fall on same level from slipping, tripping and stumbling without subsequent striking against object, initial encounter; Y93.89 Activity, other specified; Y92.89 Other specified places as the place of occurrence of the external cause; Y99.8 Other external cause status
CPT/HCPCS: 36415; 73610; 73630; 74176; 76830; 76856; 80053; 81003; 81025; 85025; 93971; 99284

== ENCOUNTER 2025-03-03 22:03 | Emergency (ER) | payer OTHER ==
[~2025-03-03] VITALS: Ht 160 cm; Wt 68.0 kg
[~2025-03-03 22:03] MED LIST changes: +CARI-517 PO; -CARI350T27 PO
[2025-03-03 22:11] VITALS: O2SAT 99
[2025-03-03] MEDS ORDERED: DIPHENHYDRAMINE 50MG CAPSULE PO ONE (22:45)
[2025-03-03] MEDS ORDERED: TC1U15 TP (22:47)
[2025-03-03] MEDS ORDERED: CLOT15CR27 TP (22:50)
[2025-03-03 23:12] VITALS: BP 116/76; PULSE 80; RESP 16; TEMP 36.8; O2SAT 99
[2025-03-03] MEDS: DIPHENHYDRAMINE 25MG CAPSULE PO NR (23:27)
== END 2025-03-03 23:35 | disposition home or self-care (01) ==
LOC: ER 22:03
DX: B35.6 Tinea cruris (principal); J45.909 Unspecified asthma, uncomplicated; F10.90 Alcohol use, unspecified, uncomplicated; Z88.6 Allergy status to analgesic agent; Z90.710 Acquired absence of both cervix and uterus
CPT/HCPCS: 99283; Q0163

== ENCOUNTER 2025-04-06 22:19 | Emergency (ER) | payer OTHER ==
[~2025-04-06] VITALS: Ht 160 cm; Wt 63.0 kg
[~2025-04-06 22:19] MED LIST changes: +CLOT15CR27 TP; +TC1U15 TP
[2025-04-06 22:32] VITALS: TEMP 37.1; O2SAT 98
[2025-04-06 23:49] VITALS: TEMP 98.5
[2025-04-06] MEDS: ACETAMINOPHEN 325MG TABLET PO ONE (23:49)
[2025-04-06] MEDS: VISCOUS LIDOCAINE 2% 15 ML UDC MM STA (23:50)
[2025-04-07] MEDS: DIPHENHYDRAMINE 50MG/ML VIAL IM ONE (01:10)
[2025-04-07] MEDS: PREDNISONE 20MG TABLET PO ONE (01:20)
[2025-04-07] MEDS ORDERED: DIPH25CA83 MT (02:35)
[2025-04-07] MEDS ORDERED: P20 MT (02:35)
[2025-04-07 03:38] VITALS: BP 106/61; PULSE 81; RESP 12; O2SAT 100
== END 2025-04-07 03:42 | disposition home or self-care (01) ==
LOC: ER 22:19
DX: T78.49XA Other allergy, initial encounter (principal); J02.9 Acute pharyngitis, unspecified; J45.909 Unspecified asthma, uncomplicated; Z88.6 Allergy status to analgesic agent; Z88.8 Allergy status to other drugs, medicaments and biological substances; Z90.710 Acquired absence of both cervix and uterus; X58.XXXA Exposure to other specified factors, initial encounter
CPT/HCPCS: 99283; 87430; 87070; 96372; J7512; J1200; 99284